=== PATIENT | male | born 1950 | race Caucasian/White ===

== ENCOUNTER 2024-02-18 20:14 | Inpatient (IN) | payer MEDICARE, SELFPAY ==
[2024-02-18] VITALS (25 sets, daily range): BP systolic 85–123; BP diastolic 39–79; BMI 30.9
[2024-02-18 18:27] LABS: % Basophils 0.3 % (0-2); % Eosinophils 0.1 % (0-6); % Immature Granulocytes 0.4 % (0-0.5); % Lymphocytes 10.5 % (20.5-51.1); % Neutrophils 79.7 % (42.2-75.2); Absolute Basophils 0.1 10^3/uL (0-0.2); Absolute Immature Granulocytes 0.1 10^3/uL (0-0.05); Absolute Monocytes 1.7 10^3/uL (0.1-0.6); Hematocrit 48.4 % (39.0-52.0); Mean Corp Hgb Conc. 35.1 g/dL (33.0-37.0); Mean Corpuscular Hgb 33.5 pg (27.0-31.0); Mean Corpuscular Volume 95.5 fL (80.0-94.0); Mean Platelet Volume 9.5 fL (7.4-10.4); Nucleated Red Blood Cells % 0 % (-); Platelet Count 316 10^3/uL (130-400); Red Blood Cell Count 5.07 10^6/uL (4.70-6.10); Red Cell Dist. Width 12.4 % (11.5-14.5); White Blood Cell Count 18.9 10^3/uL (4.8-10.8)
[2024-02-18 18:37] LABS: APTT 30.5 Sec (23.4-35.0); INR 0.98; PT 13.5 Sec (11.4-14.6)
[2024-02-18 18:48] LABS: ALT (SGPT) 45 U/L (0-50); AST (SGOT) 198 U/L (17-59); Albumin 3.9 g/dl (3.5-5.0); Alkaline Phosphatase 81 U/L (38-126); Blood Urea Nitrogen 17 mg/dl (9-20); Calcium 9.1 mg/dl (8.4-10.2); Carbon Dioxide 25 mmol/L (22-30); Chloride 105 mmol/L (98-107); Estimated Creatinine Clearance 70 ml/min; Glucose 125 mg/dl (70-99); Potassium 3.9 mmol/L (3.5-5.1); Sodium 138 mmol/L (135-145); Total Bilirubin 2.4 mg/dl (0.2-1.3); Total Protein 6.6 g/dl (6.3-8.2); eGFR > 60.00
--- NOTE | 2024-02-18 19:10 | ED.GENMED ---
History of Present Illness
General
Chief Complaint: Chest Pain
Source: patient
Exam Limitations: none
Time Seen by Provider: 02/18/24 18:29
Nursing documentation reviewed up to this point in time: agreed with
History of Present Illness
History of Present Illness:
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
or any other meds, had a COVID shot a few days ago, afterward developed some back pain and chills, past 24 hours had chest pain shortness of breath inability to lie flat, came fairly severe a few hours ago, driven in by his girlfriend, here locally
was in A-fib with ST segment elevation brought back immediately STEMI alert was called
Past History
Past History
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
ED Past Surgical History: None
Social History
Tobacco: Non-smoker
Alcohol: None
Drug: None
Personal:
Living: with family
Employment: Retired
Review of Systems
Review of Systems
All Other Systems: Not applicable
Constitutional: Reports chills
EENT: Reports no symptoms
Respiratory: Reports trouble breathing
Cardiac: Reports chest pain; Denies diaphoresis
ABD/GI: Reports no symptoms
Musculoskeletal: Reports no symptoms
Neurological: Reports no symptoms
Phy Exam
Physical Exam
Physical Exam:
Physical Exam
General: Ill-appearing male
Neck: No jaundice
Heart: Irregular
Lungs: no acute respiratory distress.
Abdomen: Nontender
Neuro: alert and oriented. no focal neurological deficits
Skin: no rash
Psychiatric: well kept. interactive and cooperative
Extremities: Strong radial pulses no calf pain
Scores
Heart Score for Chest Pain Patients
STEMI patient?: Yes
Course
Orders/Labs/Results
Orders:
Orders
02/18/24 18:11
EKG [Electrocardiogram (*1)] Urgent
Reason for Study: Chest Pain
EKG- Treatment ONCE
02/18/24 18:20
Cardiac Monitoring- Treatment ONCE
02/18/24 18:21
Complete Blood Count/With Diff Urgent
Comprehensive Metabolic Panel Urgent
PTT Urgent
Prothrombin Time Urgent
Troponin I Urgent
02/18/24 18:50
Fentanyl Citrate/Pf [Sublimaze] 100 mcg .ROUTE .STK-MED ONE
Heparin 10,000 units .ROUTE .STK-MED ONE
Heparin 1000 Units/500 ml [Heparin] 1,000 units in 500 ml .ROUTE .STK-MED
Heparin Sodium,Porcine/Ns/Pf [Heparin 2000 Units/1000 ml] 2,000 unit in 1,000 ml .ROUTE .STK-MED
Midazolam HCl [Versed] 2 mg .ROUTE .STK-MED ONE
Nitroglycerin [Tridil] 1,500 mcg .ROUTE .STK-MED ONE
Verapamil Injectable [Isoptin/Verapamil Injection] 5 mg .ROUTE .STK-MED ONE
02/18/24 19:00
Lidocaine HCl/Pf [Xylocaine-Mpf 1% Vial] 100 mg .ROUTE .STK-MED ONE
02/18/24 19:14
Aspirin Chewable [Low Strength Aspirin] 324 mg .ROUTE .STK-MED ONE
Ticagrelor [Brilinta] 180 mg .ROUTE .STK-MED ONE
02/18/24 19:15
Eptifibatide [Integrilin] 20 ml .ROUTE .STK-MED
Heparin 5,000 units .ROUTE .STK-MED ONE
Abnormal Lab Results
02/18/24
18:21
WBC 18.9 H 10^3/uL
(4.8-10.8)
MCV 95.5 H fL
(80.0-94.0)
MCH 33.5 H pg
(27.0-31.0)
Abs Immat Gran (auto) 0.1 H 10^3/uL
(0-0.05)
Absolute Neuts (auto) 15.0 H 10^3/uL
(1.4-6.5)
Absolute Monos (auto) 1.7 H 10^3/uL
(0.1-0.6)
Neutrophils % 79.7 H %
(42.2-75.2)
Lymphocytes % 10.5 L %
(20.5-51.1)
Glucose 125 H mg/dl
(70-99)
Total Bilirubin 2.4 H mg/dl
(0.2-1.3)
AST 198 H U/L
(17-59)
Troponin I 38.600 H* ng/ml
02/18/24 18:21
02/18/24 18:21
Vital Signs
Initial and Last Documented VS:
Initial Vital Signs
Temp Pulse Resp BP Pulse Ox
98.3 F 80 20 123/62 99
02/18/24 18:26 02/18/24 18:26 02/18/24 18:26 02/18/24 18:26 02/18/24 18:26
Last Documented Vital Signs
Temp Pulse Resp BP Pulse Ox
98.3 F 78 20 103/60 95
02/18/24 18:26 02/18/24 18:56 02/18/24 18:56 02/18/24 18:56 02/18/24 18:56
MDM/Problems Addressed
Differential Diagnosis Includes:
STEMI dissection PE embolic
MDM/Problems Addressed:
Chest pain
*Pulse Oximetry
Patient hypoxic: no
*EKG
Interpreted by ED Provider?: Yes
Interpretation: abnormal
Comparison EKG: no comparison EKG present
Heart Rate: 78
Rate: normal
Rhythm: a-fib
Ischemia: ST elevation
*Charm Filter Operator Helper Interpretation
Rate: normal
Interpretation: normal
Heart Rate: 78
Rhythm: a-fib
*Critical Care Note
Total Time (30-74mins, 75-104mins- exclusive of procedures): 30
Update Note
Update Note:
CRITICAL CARE STATEMENT: A total of 31 minutes of critical care time was provided for this patient. This includes management of unstable vital signs, evaluation of the patient at bedside, reviewing the patient's pertinent medical records discussion
with EMS providers and patient's family in addition to discussion with consultants, review of old EKGs and review of pertinent medical records. This time with separate from time utilized to perform the aforementioned documented procedures
ED Attending Note
-
Portions of this chart may have been created with voice recognition software.� Occasional wrong word or��sound alike� substitutions may have occurred due to the inherent limitations of voice recognition software.
Discharge Plan
Departure
Patient Disposition: Admit
Date of Disposition: 02/18/24
Time of Disposition: 19:22
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
Admit to doctor: nadine
Presentation/result/management discussed w/ accepting MD/DO: cardiology nadine
Patient with high blood pressure during this ER visit?: No
Condition: Serious
Covid-19: Not Applicable
Discharge Problem:
ST elevation (STEMI) myocardial infarction, Atrial fibrillation
Prescriptions:
No Action
ibuprofen [Advil] 200 mg Tablet
400 mg PO Q8HPRN PRN (Reason: mild pain)
Referrals:
UNKNOWN - PT NOT,INTERVIEWE [Family Provider] -
Interventions
Interventions:
*Risk Screen - Suicide Last Done: 02/18/24 18:12
*General Assessment Last Done: 02/18/24 18:47
*Neglect/Abuse Screening Last Done: 02/18/24 18:12
*ED COVID-19 Vaccine History Last Done: 02/18/24 18:46
*Nursing Disposition Last Done: 02/18/24 19:17
ED- Cardiac Assessment Last Done: 02/18/24 18:40
Discharge Date and Time
Discharge Date/Time: 02/18/24 19:18
Print Language: PAP[place]
--- NOTE | 2024-02-18 20:39 | ITS.CL.CATH ---
Rivet Tester - Catheterization
Cardiac Catheterization
Procedure Report:
LEFT HEART CATH AND CORONARY INTERVENTION
Date of Procedure: February 18, 2024
Referring: [facility] Emergency Department
PROCEDURES:
1. Left heart catheterization with coronary and single-plane left ventriculography
2. Successful placement of overlapping 3.0 x 30 mm and 2.25 x 30 mm [place] stents in the mid LAD. The distal stents were postdilated with a 2.5 mm noncompliant balloon and the more proximal stent was postdilated to high pressures with a 3.25 mm
noncompliant balloon
3. Intravascular ultrasound
INDICATION: This is a 73-year-old gentleman who presented to [facility] for evaluation of substernal chest pain. He has experienced pain almost continually over the last 24 or more hours with brief respites of resolution. His pain has
been persistent throughout much of the evening on the day of admission leading him to seek medical attention. His electrocardiogram was notable for new atrial fibrillation as well as anterior ST segment elevation for which a STEMI alert was
activated
ACCESS: Right radial artery, 6 Lao sheath
HEMODYNAMICS (mmHg):
AO (s/d, m) : 91/56, 38
LV (s/d) : 97/14
LVEDP : 19
CORONARY FINDINGS
Dominance: Right
LEFT MAIN: Normal
LEFT ANTERIOR DESCENDING: The LAD arises normally from the left main and runs in the anterior interventricular groove. The mid LAD has a long segment of 60% stenosis and then becomes 100% occluded.
CIRCUMFLEX: The circumflex is a medium caliber nondominant vessel. The first obtuse marginal branch has a 85% proximal stenosis and is a small caliber vessel. The circumflex terminates in a small distal OM 2
RIGHT CORONARY: The right coronary artery is a dominant vessel with diffuse luminal irregularities but no focal obstructive stenosis. The PDA is patent. The posterolateral branch is patent
VENTRICULOGRAPHY: Left ventriculography is performed in an KERR projection. The digital single-plane left ventricular ejection fraction is estimated at 45% with distal anterior, apical, and inferoapical severe hypokinesis
ANGIOPLASTY PROCEDURE DETAIL: Upon review of the diagnostic catheterization films the decision was made to proceed with percutaneous revascularization of the occluded LAD. The patient was aspirin na�ve and symptoms had been present for many hours
and the decision was made to treat with double bolus Integrilin and intravenous heparin. The ACT was monitored throughout the procedure. The origin of the left main was cannulated with a 6 Lao EBU 3.5 guiding catheter and a BMW guidewire
crossed the occluded segment in the mid LAD with a moderate degree of difficulty. The wire was advanced to the distal vessel balloon predilation was performed using it 2.0 x 12 mm [place] balloon with serial inflations performed in the mid LAD with
cheondoism of antegrade flow. There appeared to be here reasonably long segment of atherosclerosis in the mid LAD that was covered with placement of a 2.25 x 30 mm Pk stent that was implanted at nominal pressures. The decision was made to cover
the entire diseased segment in the mid LAD and a second stent measuring 3.0 x 30 mm was positioned proximal to and overlapping the more distal LAD stent. The more proximal stent was implanted at nominal pressures. Intravascular ultrasound was then
performed and suggested a reasonable ball vessel diameter for the more distal stent measured around 2.5 mm and the more proximal stent measured up to 3.5 mm. The distal stented segment was postdilated to high pressures with a 2.5 mm noncompliant
balloon while the area of stent overlap to the proximal stent was postdilated with a 3.25 mm noncompliant balloon to high pressures with a nice angiographic result
It should be noted that door to balloon time was delayed because a computer error occurred in cardiac Rivet Tester 1 and Cardiac Rivet Tester 3 machinery had to be turned on to perform the procedure. I estimated this result in a 10-minute delay patient
arrival to the cardiac Rivet Tester.
RADIATION SUMMARY: Fluoro Time (min): 13.1, Dose (mGy): 1028.5, DAP (Gy.cm2) : 73.4
CONCLUSIONS
1. Successful placement of overlapping stents in the mid LAD for treatment of an evolving anterior wall myocardial infarction many hours duration as described above
2. Ischemic cardiomyopathy
3. New onset atrial fibrillation
RECOMMENDATIONS
1. A 600 mg loading dose of clopidogrel will be administered at 2 PM on 02/19/2024 followed by 75 mg daily starting on 02/20/2024
2. Start IV heparin given underlying atrial fibrillation
3. Aspirin 81 mg daily
4. LFTs are elevated. I have ordered atorvastatin to be placed on hold until cleared by cardiology. Will repeat complete chemistry to assess LFTs
5. Trend serial troponin, hemoglobin A1c and fasting lipid profile
6. Triple therapy with aspirin, clopidogrel, and oral anticoagulant. Will treat with IV heparin for the first 24-48 hours then decide which form of oral anticoagulation will be most appropriate
Copy to: Dr. Simba Loco
[2024-02-18 21:16] LABS: Hematocrit 43.8 % (39.0-52.0); Hemoglobin 15.5 g/dL (13.0-18.0); Mean Corp Hgb Conc. 35.4 g/dL (33.0-37.0); Mean Corpuscular Hgb 33.4 pg (27.0-31.0); Mean Corpuscular Volume 94.4 fL (80.0-94.0); Mean Platelet Volume 9.6 fL (7.4-10.4); Platelet Count 294 10^3/uL (130-400); Red Blood Cell Count 4.64 10^6/uL (4.70-6.10); Red Cell Dist. Width 12.3 % (11.5-14.5); White Blood Cell Count 19.7 10^3/uL (4.8-10.8)
--- NOTE | 2024-02-18 21:20 | PTCARENOTE ---
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 Hand off transfer done. VS recorded. Post angio checks per protocol.EKG done and shown to REBECA Rosas at 2120.Lab work done. PTT reported to . To start Heparin gtt at 0100. Pt c/o mild midsternal CP,05/02.
made aware. Sats 95% on room air. Pt in AF, rate 70's. BBS present.Clear to B lobes and bases. Audible heart tones. Irregular. Belly soft, nontender. Normoactive bowel sounds x 4. Given ice chips, will advance to clears. Partner at [facility].
--- NOTE | 2024-02-18 21:20 | ECGCV ---
REBECA Terry notified of ECG critical value identified by electronic interpretation on ECG completed on 02/18/24, at 2120.
[2024-02-18 21:28] LABS: APTT 81.5 Sec (23.4-35.0)
--- NOTE | 2024-02-18 22:30 | PTCARENOTE ---
VS done. Meds given. Tylenol 650 mg po given for mild c/o R chronic shoulder pain. Pt neuro intact. Speech clear. Moves extremities equally. Sats on room air 97-98%. Denies CP. BP 114/72. Afebrile. Heparin gtt at 1400 units/hr. To check PTT in am.
HR 60, SR. Belly soft, nontender, Normoactive bs x 4. Pt to BR to void clear, yellow urine. Ongoing plan of care.
--- NOTE | 2024-02-18 22:34 | PTCARENOTE ---
PA at bedside at 2220 to assess pt c/o SOB. Portable CXR ordered and done. Sats currently 97-98% on 2L/NC. C/O 04/01 midsternal CP. Most recent BP 109/66 (81).
[2024-02-18 22:43] LABS: NT-proBNP 3200 pg/ml
[2024-02-18] MEDS: TYLENOL 500 MG PO (23:12)
[2024-02-19] VITALS (18 sets, daily range): BP systolic 93–119; BP diastolic 43–69; BMI 29.8
--- NOTE | 2024-02-19 00:15 | PTCARENOTE ---
Troponin 47.6,REBECA Rosas made aware via [place] Text.
--- NOTE | 2024-02-19 01:05 | PTCARENOTE ---
Pt converted to SR at 0104.Rate 72 bpm. He remains on 2L/NC/O2. Sats 96-95%
[2024-02-19 01:24] LABS: APTT 34.2 Sec (23.4-35.0)
[2024-02-19] MEDS: HEPARIN 25000 UNITS/250 ML IV ×2 (01:47→15:41)
--- NOTE | 2024-02-19 02:30 | PTCARENOTE ---
Heparin gtt started at 0150 at 1500 units/hr. Repeat PTT 34.2. Pt then c/o 05/30 upper CP. REBECA Rosas at bedside. Pt further explained his clavicle felt tender. Will give Tylenol 500 mg at 0300, when due. Pt helped up to BR to void. See VS. BP
stable. Pt without dizziness or lightheadedness with standing and walking to BR. Pt voided clear, dk yellow urine, 300 mls. Pt weighed on standing scale then helped back to bed. CHG bath given. TR band removed and dressing applied ( see flowsheet).
[2024-02-19] MEDS: TYLENOL 500 MG PO (03:15)
[2024-02-19 05:06] LABS: Mean Corp Hgb Conc. 36.6 g/dL (33.0-37.0); Mean Platelet Volume 9.9 fL (7.4-10.4); Platelet Count 284 10^3/uL (130-400); Red Blood Cell Count 4.41 10^6/uL (4.70-6.10); Red Cell Dist. Width 12.2 % (11.5-14.5); White Blood Cell Count 19.7 10^3/uL (4.8-10.8)
[2024-02-19 05:16] LABS: Blood Urea Nitrogen 17 mg/dl (9-20); Calcium 8.6 mg/dl (8.4-10.2); Carbon Dioxide 21 mmol/L (22-30); Chloride 108 mmol/L (98-107); Estimated Creatinine Clearance 68 ml/min; Glucose 126 mg/dl (70-99); HDL Cholesterol 44 mg/dl; LDL Cholesterol, Calculated 121 mg/dl; Potassium 3.6 mmol/L (3.5-5.1); Sodium 138 mmol/L (135-145); Total Cholesterol 178 mg/dl (50-199); Triglyceride 65 mg/dl (10-149); Very Low Density Lipoprotein 13 mg/dl (0-30); eGFR > 60.00
--- NOTE | 2024-02-19 05:35 | PTCARENOTE ---
AM troponin critical at 43.1 but trending downwards. REBECA Ayala made aware via [place] Text.
--- NOTE | 2024-02-19 06:28 | ECGCV ---
REBECA Webster notified of ECG critical value identified by electronic interpretation on ECG completed on 02/19/24, at 0625.
--- NOTE | 2024-02-19 08:10 | CARDSERVLU ---
Echocardiogram with Lumason completed after protocol screening completed. Allergies verified.
Patent IV site: __R AC__
IV site flushed with 0.9% NaCl pre and post administration.
Diluted bolus method utilized to enhance visualization of ventricular hirsch.
Total volume given: __3.5__ mL
Patient tolerated all procedures well without complications.
[2024-02-19] MEDS: LOW STRENGTH ASPIRIN 81 MG PO (09:33)
[2024-02-19] MEDS: PROTONIX 40 MG PO (09:33)
--- NOTE | 2024-02-19 09:41 | W.PN.CARDCBS ---
Addendum entered and electronically signed by Simba Real MD 02/19/24 11:38:
73-year-old man active, congenital carotid artery abnormality with CVA, healthy and on no meds, presenting with atrial fibrillation and anterior myocardial infarction, received COVID vaccine a few days prior. Chest discomfort and dyspnea for
approximately 24 hours prior to presentation. Currently he feels well and offers no complaints. 4 children at bedside.
Meds on admission: None
current medications: Aspirin 81 mg a day, Plavix 75 mg a day, IV heparin, pantoprazole, atorvastatin 80 mg a day
108/58, pulse 77, respirate 18, afebrile, no distress, head neck exam unremarkable, lungs are clear, regular rate and rhythm soft murmur, cannot exclude rub, JVD okay, abdomen benign, extremities without clubbing cyanosis or edema,
ECG sinus rhythm, inferior DC with ST elevation, anterolateral DC
White count 19.7, hemoglobin 15, platelets 284, BUN and creatinine 17 and 1.1, proBNP 3200, troponin peak 47.6
Echo 02/19/2024: EF 40-45%. Apical and periapical a-dyskinesis with 1.6 x 1.2 cm LV apical thrombus, no aortic regurgitation or stenosis, no mitral regurgitation, right heart and atria normal, pulmonary artery pressure normal
Cardiac catheterization 02/18/2024 normal left main, 60% mid LAD then 100% occluded, OM1 with 85% proximal stenosis, dominant RCA, EF 45% with severe LAD distribution hypokinesis, LVEDP 19, overlapping 3 x 30 and 2.25 x 30 Pk stents to mid LAD
Impression:
Late presentation anterior ST segment elevation DC
Paroxysmal atrial fibrillation, now sinus rhythm
Ischemic cardiomyopathy, EF 40-45%
Left ventricular apical thrombus
Hypercholesterolemia
Plan:
He looks reasonably stable, but unfortunately has marked regional wall motion abnormality and LV apical thrombus.
Blood pressure is relatively low and proBNP is 3200.
Continue heparin. Plavix and aspirin. Will transition to Xarelto or Eliquis when we are convinced he is stable and we are fairly confident that that LV thrombus is static.
Start low-dose beta-amie, add GDMT as possible. Blood pressure may be a limiting factor.
With regards to atrial fibrillation, he will be anticoagulated, and I am hopeful that A-fib may not recur.
Original Note:
Today's Communication / Plan
-
Continue IV heparin with likely transition to oral anticoagulation in next 24 to 48 hours
Add low-dose beta-amie Toprol 12.5 mg if blood pressure allows
Continue Plavix and aspirin
Echo
Impression / Plan
-
PCP: Dr. Doty
Maternal Fetal Physician: None prior to admission. Initial consultation Dr. Simba Loco
Impression:
Presented 02/18/2024 with chest pain x 24 hours
STEMI
s/p overlapping 3.0 x 30 mm and 2.25 x 30 mm [place] stents in the mid LAD 02/18/2024
Atrial fibrillation/flutter, this appears to be new diagnosis
Left apical thrombus on echo 02/19/2024
Ischemic cardiomyopathy, EF 45%
Abnormal LFTs
Stroke at age 16, congenital abnormality of left carotid
Hyperlipidemia
Cervical surgery 2016
Cardiac catheterization 02/18/2024: LM: NL. LAD: Long 60% mid stenosis followed by 100% occlusion s/p overlapping 3.0 x 30 mm and 2.25 x 30 mm Pk stents in the mid LAD. LCX: 85% proximal stenosis of OM1 (small caliber). RCA: LI with patent PDA.
VENTRICULOGRAPHY: EF 45% with distal anterior, apical, and inferoapical severe hypokinesis
Echo 02/19/2024: EF 45 to 50%, apex and periapical segments dyskinetic. Akinesis of mid septum with apical thrombus noted. (1.6cm x 1.2cm). Mild concentric LVH. No significant valvular disease.
Presented 02/18/2024 with chest pain x 24 hours. EKG concerning for STEMI and patient taken emergently to cardiac catheterization lab. Peak troponin 47.6
-s/p overlapping 3.0 x 30 mm and 2.25 x 30 mm [place] stents in the mid LAD 02/18/2024.
-Patient found to have left apical thrombus on echo 02/19/2024. Also presented with atrial fibrillation/flutter. Will treat with IV heparin for the first 24-48 hours then likely transition to oral anticoagulation, Xarelto.
-Patient will need triple therapy with anticoagulation, aspirin and Plavix x 1 week then Plavix and OAC
-Prestatin lipids TC 178, HDL 44, LDL 121, triglycerides 65. Patient noted to have mild LFT elevation with AST 145, ALT 38. Continue to monitor with likely initiation of statin in next 24
-Hemoglobin A1c pending
-Potassium 3.6. Will replete
-Cardiac rehab consultation
Ischemic cardiomyopathy, EF noted to be 45% with apex and periapical segments dyskinetic. Akinesis of mid septum.
-Blood pressure running low. Will add low-dose Toprol 12.5 mg daily. If blood pressure allows add WILFRED inhibitor
-Consider adding SGLT2 inhibitor. Asked case management for cost analysis
Left apical thrombus noted on echocardiogram 02/19/2024. Continue IV heparin with eventual transition to OAC in next 24 hours. Likely Xarelto
Paroxysmal atrial fibrillation/flutter on presentation to emergency department.
-Patient spontaneously converted to sinus rhythm
-This appears to be new diagnosis.
-Will treat with IV heparin for the first 24-48 hours then transition to oral anticoagulation
-Per Case management Xarelto is a $40 co-pay covered under his plan. Eliquis would require prior authorization and is only covered at 50% of total cost.
Abnormal LFTs. Slowly trending down. Continue to monitor with addition of statin
Plan was discussed with nursing, patient, patient's family, hospitalist.
Spent 53 minutes discussing recent events, cardiac testing, treatment plan decision, [id number] encounter and documentation
HPI 02/18/2024:
This is a 73-year-old gentleman who presented to [facility] for evaluation of substernal chest pain. He has experienced pain almost continually over the last 24 or more hours with brief respites of resolution. His pain has been persistent
throughout much of the evening on the day of admission leading him to seek medical attention. His electrocardiogram was notable for new atrial fibrillation as well as anterior ST segment elevation for which a STEMI alert was activated
Progress Note - Maternal Fetal Physician
Subjective
Date of Service: February 19, 2024
Patient seen and examined. Patient's family at bedside. Patient reports he is feeling well. Chest pain has resolved.
Objective
Labs:
02/19/24 04:28
02/19/24:
Labs
Hgb 15.0 g/dL (13.0-18.0) 02/19/24:
Hct 41.0 % (39.0-52.0) 02/19/24 04:
Plt Count 284 10^3/uL (130-400) 02/19/24 04:28
PT 13.5 Sec (11.4-14.6) 02/18/24 18:21
INR 0.98 02/18/24 18:21
APTT 34.2 Sec (23.4-35.0) 02/19/24 00:47
Sodium 138 mmol/L (135-145) 02/19/24 04:28
Potassium 3.6 mmol/L (3.5-5.1) 02/19/24 04:
BUN 17 mg/dl (9-20) 02/19/24 04:
Creatinine 1.1 mg/dL (0.7-1.3) 02/19/24 04:
Glucose 126 mg/dl (70-99) H 02/19/24:28
Troponins
02/18/24 02/18/24 02/19/24
18:21 21:08 04:28
Troponin I 38.600 H* 47.600 H* 43.100 H*
Vital Signs and I&O:
Vital Signs
Temp Pulse Resp BP Pulse Ox
97.8 F 77 18 108/58 96
02/19/24 08:29 02/19/24 03:00 02/19/24 08:29 02/19/24 03:00 02/19/24 09:32
Vital Signs
Temp Pulse Resp BP Pulse Ox
97.8 F 77 18 108/58 96
02/19/24 08:29 02/19/24 03:00 02/19/24 08:29 02/19/24 03:00 02/19/24 09:32
Intake & Output
02/17/24 02/18/24 02/19/24 02/20/24
06:59 06:59 06:59 06:59
Intake Total 135 / 135
Output Total 300 / 300
Balance -165 / -165
Physical Exam
Physical Exam
GEN: No distress, awake, Ox3, lying in bed wearing oxygen
HEENT: supple, anicteric, mmm
LUNGS: CTA, no wheezes/rales
CV: Reg, S1/S2, no murmur, rub or gallop
ABD: soft, BS+, NT/ND
EXT: No edema, clubbing or cyanosis. Right radial access site clean dry intact with palpable pulse, no evidence of hematoma
NEURO: Gross non-focal
SKIN: No rash, warm, dry, pink
[2024-02-19 10:01] LABS: ALT (SGPT) 38 U/L (0-50); AST (SGOT) 145 U/L (17-59); Albumin 3.3 g/dl (3.5-5.0); Alkaline Phosphatase 85 U/L (38-126); Direct Bilirubin 0.3 mg/dl (0.0-0.4); Total Bilirubin 3.1 mg/dl (0.2-1.3); Total Protein 5.8 g/dl (6.3-8.2)
[2024-02-19 10:12] LABS: Glycohemoglobin (HgbA1c) 5.3 % (4.0-5.6)
--- NOTE | 2024-02-19 10:22 | CM ---
Addendum entered by ROGERIO French 02/19/24 15:17:
Priced Jardiance + Farxiga thru patient's insurance plan.
Both medications are estimated to cost $450/mo as patient is in his coverage gap.
Did explain this to patient + family and TT to MARINA to update.
Original Note:
Priced Eliquis thru patient's insurance, [employer]- [phone].
Eliquis requires prior authorization. Once approved, estimated co pay is 50% of total med cost.
Plan would cover Xarelto without a prior authorization. Estimated co payment for this would be $40/mo.
TT to JIGAR Garrido and to Selena Wilson PA-C to update.
[2024-02-19] MEDS: KCL 40 MEQ PO (10:54)
[2024-02-19 11:19] LABS: APTT 46.8 Sec (23.4-35.0)
[2024-02-19] MEDS: TOPROL XL 12.5 MG PO (12:00)
--- NOTE | 2024-02-19 13:07 | PTCARENOTE ---
Assumed care of patient at 1100. Pt with multiple family members in room. Heparin dripped increased to 1700 units per hour per protocol for PTT result of 46.8. Next lab draw at 1730. Pt vitals stable with no c/o at this time.
[2024-02-19] MEDS: PLAVIX 600 MG PO (14:34)
--- NOTE | 2024-02-19 14:45 | CM ---
CM following for DC planning needs.
Met w/ patient and mult. family members at bedside to complete initial assessment.
Pt. resides w/ son in a private, 2 story home. Functionally, patient is indep. at baseline w/ ADLs, mobility without the use of any assisted device.
We discussed estimated costs of medications.
He is agreeable to pay $40 for Xarelto. I have placed a coupon in patient's chart for free 30 d supply of this.
He is aware that medication costs may change come March 23. They will contact his particular plan for more information.
Anticipate DC to home once stable without needs.
CM to follow.
[2024-02-19] MEDS: LIPITOR PO (17:17)
[2024-02-19 18:37] LABS: APTT 58.7 Sec (23.4-35.0)
--- NOTE | 2024-02-19 23:25 | PTCARENOTE ---
Pt received start of shift, HR SR. Pt in bed w/ family at bedside. Reinforced medication education and medication adherence. Pt w/ temp 100.8. Pt denies feeling feverish or chills. Pt does not appear diaphoretic. Pt refusing any tylenol at this
time. Pt denies CP, SOB, or lightheadedness/dizziness.
Pt reports a 'fogginess' in head since receiving 'the beta amie' earlier in the day. Neuro WNL, pt oriented, BP stable, HR WNL.
[2024-02-20 01:01] LABS: APTT 91.4 Sec (23.4-35.0)
[2024-02-20 03:28] VITALS: BP 106/64
[2024-02-20 06:00] VITALS: BMI 29.7
[2024-02-20 06:48] LABS: Hematocrit 43.8 % (39.0-52.0); Hemoglobin 15.6 g/dL (13.0-18.0); Mean Corp Hgb Conc. 35.6 g/dL (33.0-37.0); Mean Corpuscular Hgb 33.6 pg (27.0-31.0); Mean Corpuscular Volume 94.4 fL (80.0-94.0); Mean Platelet Volume 9.8 fL (7.4-10.4); Platelet Count 291 10^3/uL (130-400); Red Blood Cell Count 4.64 10^6/uL (4.70-6.10); Red Cell Dist. Width 12.3 % (11.5-14.5); White Blood Cell Count 15.9 10^3/uL (4.8-10.8)
[2024-02-20 07:00] LABS: APTT 85.2 Sec (23.4-35.0)
[2024-02-20] MEDS: HEPARIN 25000 UNITS/250 ML IV (07:06)
[2024-02-20 07:23] LABS: Blood Urea Nitrogen 17 mg/dl (9-20); Calcium 9.2 mg/dl (8.4-10.2); Carbon Dioxide 25 mmol/L (22-30); Chloride 103 mmol/L (98-107); Estimated Creatinine Clearance 57 ml/min; Glucose 106 mg/dl (70-99); Potassium 4.7 mmol/L (3.5-5.1); Sodium 139 mmol/L (135-145); eGFR 58.73
[2024-02-20 07:46] VITALS: BP 99/60
[2024-02-20] MEDS: PLAVIX 75 MG PO (08:01)
[2024-02-20] MEDS: TOPROL XL 12.5 MG PO (08:01)
[2024-02-20] MEDS: LOW STRENGTH ASPIRIN 81 MG PO (08:01)
[2024-02-20] MEDS: PROTONIX 40 MG PO (08:02)
--- NOTE | 2024-02-20 09:00 | PTCARENOTE ---
Assumed care of pt from police shift commander RN. Soy3. NSR on cardiac care nurse. VSS. Heparin gtt infusing through L FA PIV at 1900 units/hr. R radial site TECHNICAL ASST. Assessment documented. Pt resting in bed, call matthews in reach.
--- NOTE | 2024-02-20 09:02 | W.PN.CARDCBS ---
Addendum entered and electronically signed by Carole Huerta DO 02/20/24 16:51:
I saw and examined the patient.
The Supervising Bailiff's note was reviewed and I agree with the note.
Comment: Patient seen and examined with son and daughter at bedside. Denies chest pain or pressure. Lying supine without shortness of breath. No dizziness. Reviewed presentation, diagnosis, study findings, medical management plan as well as
follow-up. Answered all questions
General: No acute distress, AAOX3
Neck: Negative JVD
Heart: Regular, positive S1/S2, No murmur
Lungs: CTA b/l, negative wheezes/rales/rhonchi
Abd: Positive BS, NT/ND, neg rebound/rigidity/guarding
Ext: No edema. Right radial site intact.
Neuro: nonfocal
Plan:
Late presentation anterior ST segment elevation ID and patient taken emergently to cardiac catheterization lab.
-Peak troponin 47.6
-s/p overlapping 3.0 x 30 mm and 2.25 x 30 mm Pk stents in the mid LAD 02/18/2024.
-Patient found to have LV apical thrombus on echo 02/19/2024. Also presented with atrial fibrillation/flutte now in SR.
- collaborative discussion with patient and patient's family regarding options of anticoagulation and antiplatelet therapy. We reviewed use of warfarin versus NOAC. With shared decision making he has decided NOAC plus antiplatelet therapy. Will
stop IV heparin and start Xarelto 20 mg daily tonight. Will continue triple therapy with aspirin and Plavix for 1 week. On February 25 we will stop aspirin and continue Plavix with Xarelto.
-Repeat 2D echocardiogram with IV Definity in 3 months
-Prestatin lipids TC 178, HDL 44, LDL 121, triglycerides 65. Continue to monitor with likely initiation of statin in next 24.
-Patient noted to have mild LFT elevation with AST 145, ALT 38. Repeat LFTs 02/21/24
-SGLT2 inhibitor cost prohibitive but can reassess as an outpatient
-Hemoglobin A1c 5.3%
-Cardiac rehab consultation
Ischemic cardiomyopathy, EF noted to be 45% with apex and periapical segments dyskinetic. Akinesis of mid septum.
-Appears euvolemic
-Blood pressure running low. Will add low-dose Toprol 12.5 mg daily. If blood pressure allows add WILFRED inhibitor
-Per case management investigated cost of SGLT2 inhibitor would be $450 a month. This is cost prohibitive to patient.
LV apical thrombus noted on echocardiogram 02/19/2024. transition From IV heparin to OAC Xarelto after collaborative discussion with patient, family and collaborating providers. (Eliquis cost prohibitive)
Paroxysmal atrial fibrillation/flutter on presentation to emergency department.
-Patient spontaneously converted to sinus rhythm and has remained in sinus rhythm
-Continue anticoagulation with transition to Xarelto
-Outpatient monitoring of A-fib burden
Original Note:
Today's Communication / Plan
-
Continue IV heparin for another 24 hours
Transition to anticoagulation Xarelto 02/21/2024
Initiate low-dose Toprol as blood pressure allows
Continue aspirin, Plavix, statin
Impression / Plan
-
PCP: Dr. Doty
Human Service Worker: None prior to admission. Initial consultation Dr. Simba Loco
Impression:
Presented 02/18/2024 with chest pain x 24 hours
Late presentation anterior ST segment elevation ID
s/p overlapping 3.0 x 30 mm and 2.25 x 30 mm Pk stents in the mid LAD 02/18/2024
Atrial fibrillation/flutter, this appears to be new diagnosis
Left apical thrombus on echo 02/19/2024
Ischemic cardiomyopathy, EF 45%
Abnormal LFTs
Stroke at age 16, congenital abnormality of left carotid
Hyperlipidemia
Cervical surgery 2016
Cardiac catheterization 02/18/2024: LM: NL. LAD: Long 60% mid stenosis followed by 100% occlusion s/p overlapping 3.0 x 30 mm and 2.25 x 30 mm Pk stents in the mid LAD. LCX: 85% proximal stenosis of OM1 (small caliber). RCA: LI with patent PDA.
VENTRICULOGRAPHY: EF 45% with distal anterior, apical, and inferoapical severe hypokinesis
Echo 02/19/2024: EF 45 to 50%, apex and periapical segments dyskinetic. Akinesis of mid septum with apical thrombus noted. (1.6cm x 1.2cm). Mild concentric LVH. No significant valvular disease.
Plan:
Presented 02/18/2024 with chest pain x 24 hours. EKG concerning for late presentation anterior ST segment elevation ID and patient taken emergently to cardiac catheterization lab. Peak troponin 47.6
-s/p overlapping 3.0 x 30 mm and 2.25 x 30 mm Pk stents in the mid LAD 02/18/2024.
-Still with some mild intermittent left-sided chest discomfort seems to be more positional. EKG remains abnormal. Possibly pericarditis given late presentation ID. If pain continues consider adding colchicine.
-Patient found to have LV apical thrombus on echo 02/19/2024. Also presented with atrial fibrillation/flutter. Continue IV Heparin for another 24 hours. After collaborative discussion with patient, patient's family and attending physicians
decision was made to initiate Xarelto rather than Coumadin as anticoagulant of choice. Transition to Xarelto starting 02/21/2024
-Patient will need triple therapy with anticoagulation, aspirin and Plavix x 1 week then Plavix and OAC
-Prestatin lipids TC 178, HDL 44, LDL 121, triglycerides 65. Patient noted to have mild LFT elevation with AST 145, ALT 38. Continue to monitor with likely initiation of statin in next 24. Repeat LFTs 02/21/24
-Hemoglobin A1c 5.3%
-Cardiac rehab consultation
Ischemic cardiomyopathy, EF noted to be 45% with apex and periapical segments dyskinetic. Akinesis of mid septum.
-Blood pressure running low. Will add low-dose Toprol 12.5 mg daily. If blood pressure allows add WILFRED inhibitor
-Per case management investigated cost of SGLT2 inhibitor would be $450 a month. This is cost prohibitive to patient.
LV apical thrombus noted on echocardiogram 02/19/2024. Patient has been on IV heparin since admission continue for another 24 hours. Will transition to OAC Xarelto after collaborative discussion with patient, family and collaborating providers.
(Eliquis cost prohibitive)
Paroxysmal atrial fibrillation/flutter on presentation to emergency department.
-Patient spontaneously converted to sinus rhythm and has remained in sinus rhythm
-This appears to be new diagnosis.
-Continue heparin for another 24 hours then transition to oral anticoagulation with Xarelto 02/21/24
-Per Case management Xarelto is a $40 co-pay covered under his plan. Eliquis would require prior authorization and is only covered at 50% of total cost.
Abnormal LFTs. Slowly trending down. Continue to monitor with addition of statin; Repeat LFTs 02/21/24
HPI 02/18/2024:
This is a 73-year-old gentleman who presented to [facility] for evaluation of substernal chest pain. He has experienced pain almost continually over the last 24 or more hours with brief respites of resolution. His pain has been persistent
throughout much of the evening on the day of admission leading him to seek medical attention. His electrocardiogram was notable for new atrial fibrillation as well as anterior ST segment elevation for which a STEMI alert was activated
Progress Note - Human Service Worker
Subjective
Date of Service: February 20, 2024
Patient seen and examined. Patient resting comfortably in bed. Notes occasional left-sided chest discomfort with certain positions but denies anginal symptoms that brought him into the hospital.
Objective
Labs:
02/20/24 06:32
02/20/24 06:39
Labs
Hgb 15.6 g/dL (13.0-18.0) 02/20/24 06:32
Hct 43.8 % (39.0-52.0) 02/20/24 06:32
Plt Count 291 10^3/uL (130-400) 02/20/24 06:32
PT 13.5 Sec (11.4-14.6) 02/18/24 18:21
INR 0.98 02/18/24 18:21
APTT 85.2 Sec (23.4-35.0) H 02/20/24 06:32
Sodium 139 mmol/L (135-145) 02/20/24 06:39
Potassium 4.7 mmol/L (3.5-5.1) D 02/20/24 06:39
BUN 17 mg/dl (9-20) 02/20/24 06:39
Creatinine 1.3 mg/dL (0.7-1.3) 02/20/24 06:39
Glucose 106 mg/dl (70-99) H 02/20/24 06:39
Troponins
02/18/24 02/18/24 02/19/24
18:21 21:08 04:28
Troponin I 38.600 H* 47.600 H* 43.100 H*
02/19/24
10:41
Troponin I 35.900 H*
Vital Signs and I&O:
Vital Signs
Temp Pulse Resp BP Pulse Ox
98.4 F 77 18 99/60 95
02/20/24 07:47 02/20/24 08:01 02/20/24 07:47 02/20/24 08:01 02/20/24 07:47
Vital Signs
Temp Pulse Resp BP Pulse Ox
98.4 F 77 18 99/60 95
02/20/24 07:47 02/20/24 08:01 02/20/24 07:47 02/20/24 08:01 02/20/24 07:47
Intake & Output
02/18/24 02/19/24 02/20/24 02/21/24
06:59 06:59 06:59 06:59
Intake Total 135 / 135
Output Total 300 / 300
Balance -165 / -165
Physical Exam
Physical Exam
GEN: No distress, awake, Ox3, lying in bed wearing oxygen
HEENT: supple, anicteric, mmm
LUNGS: CTA, no wheezes/rales
CV: Reg, S1/S2, no murmur, rub or gallop
ABD: soft, BS+, NT/ND
EXT: No edema, clubbing or cyanosis. Right radial access site clean dry intact with palpable pulse, no evidence of hematoma
NEURO: Gross non-focal
SKIN: No rash, warm, dry, pink
[2024-02-20 11:43] VITALS: BP 107/62
[2024-02-20 15:54] VITALS: BP 106/69
[2024-02-20] MEDS: LIPITOR 80 MG PO (18:05)
[2024-02-20] MEDS: XARELTO 20 MG PO (18:05)
[2024-02-20 18:58] VITALS: BP 109/62
[2024-02-20 22:08] VITALS: BP 111/67
[2024-02-21] VITALS (8 sets, daily range): BP systolic 102–127; BP diastolic 54–76; BMI 29.7
--- NOTE | 2024-02-21 01:09 | PTCARENOTE ---
Rec'd pt at change of shift. Pt AAO*3, on TELE monitor in NSR, and VSS. Pt denies any pain or discomfort. Pt updated on plane of care. Pt resting with call matthews in reach.
[2024-02-21 06:19] LABS: ALT (SGPT) 26 U/L (0-50); AST (SGOT) 47 U/L (17-59); Albumin 3.1 g/dl (3.5-5.0); Alkaline Phosphatase 70 U/L (38-126); Blood Urea Nitrogen 18 mg/dl (9-20); Calcium 8.4 mg/dl (8.4-10.2); Carbon Dioxide 23 mmol/L (22-30); Chloride 104 mmol/L (98-107); Estimated Creatinine Clearance 57 ml/min; Glucose 112 mg/dl (70-99); Potassium 3.9 mmol/L (3.5-5.1); Sodium 138 mmol/L (135-145); Total Bilirubin 1.3 mg/dl (0.2-1.3); Total Protein 5.8 g/dl (6.3-8.2); eGFR 58.73
[2024-02-21] MEDS: PLAVIX 75 MG PO (08:08)
[2024-02-21] MEDS: TOPROL XL 12.5 MG PO (08:08)
[2024-02-21] MEDS: LOW STRENGTH ASPIRIN 81 MG PO (08:08)
[2024-02-21] MEDS: PROTONIX 40 MG PO (08:08)
--- NOTE | 2024-02-21 09:56 | PTCARENOTE ---
Rec'd pt at handoff. Tele- SR. Assessment completed as documented. VSS. Pt currently has no complaints of CP/discomfort. Currently in bed; call byron w/in reach.
--- NOTE | 2024-02-21 14:09 | PTCARENOTE ---
Pt monitor alarmed nel in the 40s. Pt asymptomatic. Dr. Huerta aware.
[2024-02-21] MEDS: LIPITOR 80 MG PO (18:11)
[2024-02-21] MEDS: XARELTO 20 MG PO (18:11)
--- NOTE | 2024-02-21 18:39 | W.PN.CARDCBS ---
Today's Communication / Plan
-
Optimize medical therapy after late presenting STEMI complicated by new LV dysfunction/ischemic cardiomyopathy and LV apical thrombus
Impression / Plan
-
PCP: Dr. Doty
Numerologist: None prior to admission. Initial consultation Dr. Simba Loco
Impression:
Presented 02/18/2024 with chest pain x 24 hours
Late presentation anterior ST segment elevation [place]
s/p overlapping 3.0 x 30 mm and 2.25 x 30 mm Pk stents in the mid LAD 02/18/2024
Atrial fibrillation/flutter, this appears to be new diagnosis
Left apical thrombus on echo 02/19/2024
Ischemic cardiomyopathy, EF 45%
Abnormal LFTs
Stroke at age 16, congenital abnormality of left carotid
Hyperlipidemia
Cervical surgery 2016
Cardiac catheterization 02/18/2024: LM: NL. LAD: Long 60% mid stenosis followed by 100% occlusion s/p overlapping 3.0 x 30 mm and 2.25 x 30 mm Conyers stents in the mid LAD. LCX: 85% proximal stenosis of OM1 (small caliber). RCA: LI with patent PDA.
VENTRICULOGRAPHY: EF 45% with distal anterior, apical, and inferoapical severe hypokinesis
Echo 02/19/2024: EF 45 to 50%, apex and periapical segments dyskinetic. Akinesis of mid septum with apical thrombus noted. (1.6cm x 1.2cm). Mild concentric LVH. No significant valvular disease.
Plan:
Late presentation anterior ST segment elevation [place] and patient taken emergently to cardiac catheterization lab.
-Peak troponin 47.6
-s/p overlapping 3.0 x 30 mm and 2.25 x 30 mm Conyers stents in the mid LAD 02/18/2024.
-Patient found to have LV apical thrombus on echo 02/19/2024. Also presented with atrial fibrillation/flutter now in SR.
-Telemetry noting frequent PACs and blocked PACs
-Collaborative discussion with patient and patient's family regarding options of anticoagulation and antiplatelet therapy 02/20/24. IV heparin transition to Xarelto 20 mg daily 02/20/2024. Will continue triple therapy with aspirin and Plavix for 1
week. On February 25 we will stop aspirin and continue Plavix with Xarelto.
-Repeat 2D echocardiogram with IV Definity in 3 months
-Prestatin lipids TC 178, HDL 44, LDL 121, triglycerides 65. Continue to monitor with likely initiation of statin in next .
-Patient noted to have mild LFT elevation with AST 145, ALT 38. Repeat LFTs 02/21/24
-SGLT2 inhibitor cost prohibitive but can reassess as an outpatient
-Hemoglobin A1c 5.3%
-Cardiac rehab consultation
Ischemic cardiomyopathy, EF noted to be 45% with apex and periapical segments dyskinetic. Akinesis of mid septum.
-Appears euvolemic
-Blood pressure running low. Will add low-dose Toprol 12.5 mg daily. If blood pressure allows add WILFRED inhibitor
-Per case management investigated cost of SGLT2 inhibitor would be $450 a month. This is cost prohibitive to patient.
LV apical thrombus noted on echocardiogram 02/19/2024. transition From IV heparin to OAC Xarelto after collaborative discussion with patient, family and collaborating providers. (Eliquis cost prohibitive)
Paroxysmal atrial fibrillation/flutter on presentation to emergency department.
-Patient spontaneously converted to sinus rhythm and has remained in sinus rhythm
-Continue anticoagulation with transition to Xarelto
-Outpatient monitoring of A-fib burden
Anticipate discharge home tomorrow
HPI 02/18/2024:
This is a 73-year-old gentleman who presented to [facility] for evaluation of substernal chest pain. He has experienced pain almost continually over the last 24 or more hours with brief respites of resolution. His pain has been persistent
throughout much of the evening on the day of admission leading him to seek medical attention. His electrocardiogram was notable for new atrial fibrillation as well as anterior ST segment elevation for which a STEMI alert was activated
Progress Note - Numerologist
Subjective
Date of Service: February 21, 2024
Patient seen and examined sitting out of bed to chair and overall feels well. More family members were present with additional questions which were answered to the best of my ability. No dizziness or lightheadedness. No further chest pain or
pressure.
Objective
Labs:
02/20/24 06:32
02/21/24 03:55
Labs
Hgb 15.6 g/dL (13.0-18.0) 02/20/24 06:32
Hct 43.8 % (39.0-52.0) 02/20/24 06:32
Plt Count 291 10^3/uL (130-400) 02/20/24 06:32
PT 13.5 Sec (11.4-14.6) 02/18/24 18:21
INR 0.98 02/18/24 18:21
APTT 85.2 Sec (23.4-35.0) H 02/20/24 06:32
Sodium 138 mmol/L (135-145) 02/21/24 03:55
Potassium 3.9 mmol/L (3.5-5.1) 02/21/24 03:55
BUN 18 mg/dl (9-20) 02/21/24 03:55
Creatinine 1.3 mg/dL (0.7-1.3) 02/21/24 03:55
Glucose 112 mg/dl (70-99) H 02/21/24 03:55
Troponins
02/18/24 02/18/24 02/19/24
18:21 21:08 04:28
Troponin I 38.600 H* 47.600 H* 43.100 H*
02/19/24
10:41
Troponin I 35.900 H*
Vital Signs and I&O:
Vital Signs
Temp Pulse Resp BP Pulse Ox
98.6 F 70 20 121/68 96
02/21/24 15:29 02/21/24 18:15 02/21/24 15:29 02/21/24 15:31 02/21/24 15:29
Vital Signs
Temp Pulse Resp BP Pulse Ox
98.6 F 70 20 121/68 96
02/21/24 15:29 02/21/24 18:15 02/21/24 15:29 02/21/24 15:31 02/21/24 15:29
Intake & Output
02/19/24 02/20/24 02/21/24 02/22/24
06:59 06:59 06:59 06:59
Intake Total 135 / 135 1112 / 1112 800 / 800
Output Total 300 / 300
Balance -165 / -165 1112 / 1112 800 / 800
Physical Exam
Physical Exam
GEN: No distress, awake, Ox3, lying in bed wearing oxygen
HEENT: supple, anicteric, mmm
LUNGS: CTA, no wheezes/rales
CV: Reg, S1/S2, no murmur, rub or gallop
ABD: soft, BS+, NT/ND
EXT: No edema, clubbing or cyanosis. Right radial access site clean dry intact with palpable pulse, no evidence of hematoma
--- NOTE | 2024-02-21 23:47 | PTCARENOTE ---
Rec'd pt at change of shift. PT AAO*3 on TELE monitor in NSR with VSS. Pt verbalized understanding of care plan and denies any questions or concerns. Pt denies any pain or discomfort and resting with call matthews in reach. Plan of care ongoing.
See flowchart and mar for full assessment and patient care.
[2024-02-22 02:50] VITALS: BP 122/78
[2024-02-22 02:55] VITALS: BP 122/78
[2024-02-22 03:23] LABS: Hematocrit 39.8 % (39.0-52.0); Mean Corp Hgb Conc. 35.2 g/dL (33.0-37.0); Mean Corpuscular Volume 93.9 fL (80.0-94.0); Mean Platelet Volume 9.8 fL (7.4-10.4); Platelet Count 332 10^3/uL (130-400); Red Blood Cell Count 4.24 10^6/uL (4.70-6.10)
[2024-02-22 06:00] VITALS: BMI 29.5
[2024-02-22 07:24] VITALS: BP 121/67
[2024-02-22] MEDS: TOPROL XL 12.5 MG PO (08:09)
[2024-02-22] MEDS: PLAVIX 75 MG PO (08:09)
[2024-02-22] MEDS: PROTONIX 40 MG PO (08:09)
[2024-02-22] MEDS: LOW STRENGTH ASPIRIN 81 MG PO (08:09)
[2024-02-22 11:12] VITALS: BP 108/63
--- NOTE | 2024-02-22 12:12 | W.PN.CARDCBS ---
Addendum entered and electronically signed by Selena Wilson PA-C 02/22/24 14:44:
dictated d/c summary #[id number]
Addendum entered and electronically signed by Jeanmarie Downs DO 02/22/24 14:28:
I saw and examined the patient.
The Automotive Quality Engineer's note was reviewed and I agree with the note.
Comment:
Plan:
Stable for d/c
Reviewed procedure and follow up with pt.
ASA to be stopped Feb 25 and then cont with Plavix and Xarelto.
Questions from family answered
Outpt follow up arranged.
Original Note:
Today's Communication / Plan
-
DC home on low-dose Toprol, low-dose lisinopril, statin
BMP in 10 days
Triples with aspirin, Plavix and Xarelto however starting February 25 aspirin will be stopped.
stable for d/c to home
Outpt cardiology follow up arranged
Impression / Plan
-
PCP: Dr. Doty
Blanket Cutter Hand: None prior to admission. Initial consultation Dr. Simba Loco
Impression:
Presented 02/18/2024 with chest pain x 24 hours
Late presentation anterior ST segment elevation [place]
s/p overlapping 3.0 x 30 mm and 2.25 x 30 mm Haines stents in the mid LAD 02/18/2024
Atrial fibrillation/flutter, this appears to be new diagnosis
Left apical thrombus on echo 02/19/2024
Ischemic cardiomyopathy, EF 45%
Abnormal LFTs
Stroke at age 16, congenital abnormality of left carotid
Hyperlipidemia
Cervical surgery 2016
Cardiac catheterization 02/18/2024: LM: NL. LAD: Long 60% mid stenosis followed by 100% occlusion s/p overlapping 3.0 x 30 mm and 2.25 x 30 mm Pk stents in the mid LAD. LCX: 85% proximal stenosis of OM1 (small caliber). RCA: LI with patent PDA.
VENTRICULOGRAPHY: EF 45% with distal anterior, apical, and inferoapical severe hypokinesis
Echo 02/19/2024: EF 45 to 50%, apex and periapical segments dyskinetic. Akinesis of mid septum with apical thrombus noted. (1.6cm x 1.2cm). Mild concentric LVH. No significant valvular disease.
Plan:
Patient today feels well. Able to ambulate without having chest pain, shortness of breath, dizziness or lightheadedness. Patient is eager to go home
Late presentation anterior ST segment elevation [place] and patient taken emergently to cardiac catheterization lab.
-Peak troponin 47.6
-s/p overlapping 3.0 x 30 mm and 2.25 x 30 mm Haines stents in the mid LAD 02/18/2024.
-Patient found to have LV apical thrombus on echo 02/19/2024. Also presented with atrial fibrillation/flutter now in SR.
-Telemetry noting frequent PACs and blocked PACs
-Collaborative discussion with patient and patient's family regarding options of anticoagulation and antiplatelet therapy 02/20/24. IV heparin transition to Xarelto 20 mg daily 02/20/2024. Will continue triple therapy with aspirin and Plavix for 1
week. On February 25 we will stop aspirin and continue Plavix with Xarelto.
-Repeat 2D echocardiogram with IV Definity in 3 months
-Prestatin lipids TC 178, HDL 44, LDL 121, triglycerides 65. Now on high intensity statin
-Patient noted to have mild LFT elevation with AST 145, ALT 38. Repeat LFTs 02/21/24 improved 47/26
-SGLT2 inhibitor cost prohibitive but can reassess as an outpatient. Not covered and would need prior auth
-Hemoglobin A1c 5.3%
-Cardiac rehab consultation
Ischemic cardiomyopathy, EF noted to be 45% with apex and periapical segments dyskinetic. Akinesis of mid septum.
-Appears euvolemic
-BP has improved with low Toprol 12.5 mg daily. In an effort to continue GDMT add low dose Lisinopril
-Per case management investigated cost of SGLT2 inhibitor would be $450 a month. This is cost prohibitive to patient. This can be discussed further in follow up as outpatient as drug plan may change in March
LV apical thrombus noted on echocardiogram 02/19/2024. Transitioned from IV heparin to OAC Xarelto after collaborative discussion with patient, family and collaborating providers. (Eliquis cost prohibitive)
Paroxysmal atrial fibrillation/flutter on presentation to emergency department.
-Patient spontaneously converted to sinus rhythm and has remained in sinus rhythm
-Continue anticoagulation with transition to Xarelto
-Outpatient monitoring of A-fib burden
I spent 50 minutes with patient and his family reviewing hospital course, cardiac testing, treatment plan and decision, education, [id number] encounter and documentation preparing for discharge
HPI 02/18/2024:
This is a 73-year-old gentleman who presented to [facility] for evaluation of substernal chest pain. He has experienced pain almost continually over the last 24 or more hours with brief respites of resolution. His pain has been persistent
throughout much of the evening on the day of admission leading him to seek medical attention. His electrocardiogram was notable for new atrial fibrillation as well as anterior ST segment elevation for which a STEMI alert was activated
Progress Note - Blanket Cutter Hand
Subjective
Date of Service: February 22, 2024
Patient today feels well. Able to ambulate without having chest pain, shortness of breath, dizziness or lightheadedness. Patient is eager to go home
Objective
Labs:
02/22/24 03:04
02/21/24 03:55
Labs
Hgb 14.0 g/dL (13.0-18.0) 02/22/24 03:04
Hct 39.8 % (39.0-52.0) 02/22/24 03:04
Plt Count 332 10^3/uL (130-400) 02/22/24 03:04
PT 13.5 Sec (11.4-14.6) 02/18/24 18:21
INR 0.98 02/18/24 18:21
APTT 85.2 Sec (23.4-35.0) H 02/20/24 06:32
Sodium 138 mmol/L (135-145) 02/21/24 03:55
Potassium 3.9 mmol/L (3.5-5.1) 02/21/24 03:55
BUN 18 mg/dl (9-20) 02/21/24 03:55
Creatinine 1.3 mg/dL (0.7-1.3) 02/21/24 03:55
Glucose 112 mg/dl (70-99) H 02/21/24 03:55
Vital Signs and I&O:
Vital Signs
Temp Pulse Resp BP Pulse Ox
98.4 F 73 18 121/67 95
02/22/24 11:12 02/22/24 08:00 02/22/24 11:12 02/22/24 08:09 02/22/24 11:12
Vital Signs
Temp Pulse Resp BP Pulse Ox
98.4 F 73 18 121/67 95
02/22/24 11:12 02/22/24 08:00 02/22/24 11:12 02/22/24 08:09 02/22/24 11:12
Intake & Output
02/20/24 02/21/24 02/22/24 02/23/24
06:59 06:59 06:59 06:59
Intake Total [facility]1111 1280 / 1280
Balance [facility]1111 1280 / 1280
Physical Exam
Physical Exam
GEN: No distress, awake, Ox3
HEENT: supple, anicteric, mmm
LUNGS: CTA, no wheezes/rales
CV: Reg, S1/S2, no murmur, rub or gallop
ABD: soft, BS+, NT/ND
EXT: No edema, clubbing or cyanosis
NEURO: Gross non-focal
SKIN: No rash, warm, dry, pink
[2024-02-22] MEDS: ZESTRIL 2.5 MG PO (13:08)
--- NOTE | 2024-02-22 13:52 | W.DS.TRANS ---
DC Summary - Hand Brush Filler
-
Discharge Instructions:
Discharge Diagnosis/Procedures STEMI, Angioplasty with stent to LAD x 2
Diet Low Cholesterol,2 Gram Sodium
Activity No restrictions
Driving Restrictions As prior to admission
Bathing Restrictions None
Blood Work Basic metabolic panel in 10 days
Other Services Cardiac Rehab
Instructions: Cardiac Catheterization (DC)
Stand-Alone Forms: DC Instructions- Cath/EP Lab
Changes to Home Medications: Yes
Discharge Medications:
DC Medications w/original date entered in [employer]
aspirin 81 mg chewable tablet 81 mg PO DAILY Blood clot prevention/tx #1 tab 02/22/24
atorvastatin 80 mg tablet 80 mg PO QPM High cholesterol #90 tabs 02/22/24
clopidogrel 75 mg tablet 75 mg PO DAILY Blood clot prevention/tx #90 tabs 02/22/24
lisinopril 2.5 mg tablet 2.5 mg PO DAILY Heart disease/condition #90 tabs 02/22/24
metoprolol succinate 25 mg tablet,extended release 24 hr 12.5 mg (1/2 x 25 mg) PO DAILY Heart disease/condition #45 tabs 02/22/24
pantoprazole 40 mg tablet,delayed release 40 mg PO DAILY Gastrointestinal issue #90 tabs 02/22/24
rivaroxaban 20 mg tablet (Xarelto) 20 mg PO QPM Blood clot prevention/tx #90 tabs 02/22/24
Home Medication Changes
All medications listed above are new
Stop Ibuprofen
Pending Results: No
Total time spent discharging patient (in min): 50
[2024-02-22 15:24] VITALS: BP 115/77
--- NOTE | 2024-02-22 15:26 | PTCARENOTE ---
Pt ambulating in room, OOB in chair most of the day, josé manuel well.
== END 2024-02-22 16:14 | disposition home or self-care (01) | DRG 322 ==
LOC: IVU 20:14
PROVIDERS: Physician Assistant; Physician Assistant Medical; ADMITTING PHYSICIAN Internal Medicine Interventional Cardiology; EMERGENCY PHYSICIAN Emergency Medicine; FAMILY PHYSICIAN Internal Medicine
PROC: B2111ZZ Fluoroscopy of Multiple Coronary Arteries using Low Osmolar Contrast (ICD-10-PCS; 2024-02-18)
PROC: 027035Z Dilation of Coronary Artery, One Artery with Two Drug-eluting Intraluminal Devices, Percutaneous Approach (ICD-10-PCS; 2024-02-18)
PROC: B240ZZ3 Ultrasonography of Single Coronary Artery, Intravascular (ICD-10-PCS; 2024-02-18)
PROC: B2151ZZ Fluoroscopy of Left Heart using Low Osmolar Contrast (ICD-10-PCS; 2024-02-18)
PROC: 4A023N7 Measurement of Cardiac Sampling and Pressure, Left Heart, Percutaneous Approach (ICD-10-PCS; 2024-02-18)
DX: I21.09 ST elevation (STEMI) myocardial infarction involving other coronary artery of anterior wall (principal); I48.0 Paroxysmal atrial fibrillation; I25.5 Ischemic cardiomyopathy; I51.3 Intracardiac thrombosis, not elsewhere classified; E78.00 Pure hypercholesterolemia, unspecified; M19.90 Unspecified osteoarthritis, unspecified site; Z88.1 Allergy status to other antibiotic agents; Z88.8 Allergy status to other drugs, medicaments and biological substances; Z86.73 Personal history of transient ischemic attack (TIA), and cerebral infarction without residual deficits
CPT/HCPCS: 71045; 80048; 80053; 80061; 82248; 83036; 83880; 84484; 85025; 85027; 85347; 85610; 85730; 92978; 93005; 93306; 93458; 99291; C1725; C1753; C1769; C1874; C1894; C9606; J0153; J1327; Q9950; Q9967

== ENCOUNTER 2024-04-22 11:30 | Outpatient (RCR) | payer MEDICARE, SELFPAY ==
[2024-03-28 14:38] LABS: Glucose - Point of Care 99 mg/dl (70-99)
[2024-03-28 15:49] LABS: Glucose - Point of Care 83 mg/dl (70-99)
[2024-03-28 15:49] LABS: Glucose - Point of Care 82 mg/dl (70-99)
[2024-03-30 11:02] LABS: Glucose - Point of Care 126 mg/dl (70-99)
[2024-03-30 11:51] LABS: Glucose - Point of Care 87 mg/dl (70-99)
[2024-04-01 10:53] LABS: Glucose - Point of Care 115 mg/dl (70-99)
[2024-04-01 11:48] LABS: Glucose - Point of Care 88 mg/dl (70-99)
[2024-04-04 11:17] LABS: Glucose - Point of Care 109 mg/dl (70-99)
[2024-04-04 12:14] LABS: Glucose - Point of Care 101 mg/dl (70-99)
[2024-04-06 10:55] LABS: Glucose - Point of Care 137 mg/dl (70-99)
[2024-04-06 11:56] LABS: Glucose - Point of Care 94 mg/dl (70-99)
[2024-04-08 10:55] LABS: Glucose - Point of Care 131 mg/dl (70-99)
[2024-04-08 12:00] LABS: Glucose - Point of Care 112 mg/dl (70-99)
== END 2024-04-22 23:59 | disposition home or self-care (01) ==
LOC: CRHB 11:30
PROVIDERS: ATTENDING PHYSICIAN Internal Medicine Interventional Cardiology
DX: I25.10 Atherosclerotic heart disease of native coronary artery without angina pectoris (principal); I25.2 Old myocardial infarction (principal); Z95.5 Presence of coronary angioplasty implant and graft
CPT/HCPCS: 82962; G0422; G0423

== ENCOUNTER 2024-05-13 11:54 | Outpatient (RCR) | payer MEDICARE, SELFPAY | END 2024-05-13 23:59 | disposition home or self-care (01) | LOC: CRHB 11:54 | PROVIDERS: ATTENDING PHYSICIAN Internal Medicine Interventional Cardiology | DX: I21.01 ST elevation (STEMI) myocardial infarction involving left main coronary artery (principal); I25.2 Old myocardial infarction (principal); Z95.5 Presence of coronary angioplasty implant and graft | CPT/HCPCS: G0422; G0423 ==

== ENCOUNTER → 2024-05-30 09:29 | Outpatient (REF) | payer MEDICARE, SELFPAY ==
--- NOTE | 2024-05-30 10:25 | CARDSERVLU ---
Echocardiogram with Lumason completed after protocol screening completed. Allergies verified.
Patent IV site: _Left antecubital 22 G PC inserted by Gilda Todd RN____
IV site flushed with 0.9% NaCl pre and post administration.
Diluted bolus method utilized to enhance visualization of ventricular hirsch.
Total volume given: __3__ mL
Patient tolerated all procedures well without complications.
Heplock D/C ed at 1000, site clear, no redness,no edema. Pressure held for few minutes as pt on anticogulants, no bleeding, 2x2 applied and taped. Pt offers no complaints.
== END ==
LOC: RCS 09:29
PROVIDERS: ATTENDING PHYSICIAN Nurse Practitioner; FAMILY PHYSICIAN Internal Medicine
DX: I51.3 Intracardiac thrombosis, not elsewhere classified (principal)
CPT/HCPCS: 93308; 93321; 93325; Q9950

== ENCOUNTER 2024-06-20 12:03 | Outpatient (RCR) | payer MEDICARE, SELFPAY | END 2024-06-20 23:59 | disposition home or self-care (01) | LOC: CRHB 12:03 | PROVIDERS: ATTENDING PHYSICIAN Internal Medicine Interventional Cardiology | DX: I25.10 Atherosclerotic heart disease of native coronary artery without angina pectoris (principal); I25.2 Old myocardial infarction (principal); I21.01 ST elevation (STEMI) myocardial infarction involving left main coronary artery (principal); Z95.5 Presence of coronary angioplasty implant and graft | CPT/HCPCS: 93308; 93321; 93325; G0422; G0423; Q9950 ==

== ENCOUNTER 2024-06-27 09:00 | Outpatient (RCR) | payer MEDICARE, SELFPAY | END 2024-06-27 23:59 | disposition home or self-care (01) | LOC: CRHB 09:00 | PROVIDERS: ATTENDING PHYSICIAN Internal Medicine Interventional Cardiology | DX: I21.01 ST elevation (STEMI) myocardial infarction involving left main coronary artery (principal); Z95.5 Presence of coronary angioplasty implant and graft; I25.2 Old myocardial infarction | CPT/HCPCS: G0422; G0423 ==

== ENCOUNTER → 2024-08-29 08:02 | Outpatient (REF) | payer MEDICARE, SELFPAY | LOC: RCS 08:02 | PROVIDERS: ATTENDING PHYSICIAN Internal Medicine Interventional Cardiology; FAMILY PHYSICIAN Internal Medicine | DX: I25.5 Ischemic cardiomyopathy (principal); I21.02 ST elevation (STEMI) myocardial infarction involving left anterior descending coronary artery; I25.10 Atherosclerotic heart disease of native coronary artery without angina pectoris | CPT/HCPCS: 78452; 93017; A9500 ==

== ENCOUNTER → 2024-10-20 08:46 | Outpatient (REF) | payer MEDICARE, SELFPAY | LOC: HWRCS 08:46 | PROVIDERS: ATTENDING PHYSICIAN Internal Medicine Interventional Cardiology; FAMILY PHYSICIAN Internal Medicine | DX: I51.3 Intracardiac thrombosis, not elsewhere classified (principal) | CPT/HCPCS: 93306 ==